=== PATIENT | female | born 1995 | race Caucasian/White ===

== ENCOUNTER 2022-07-14 13:03 | Observation (INO) | payer BC, MEDICAID | END 2022-07-14 15:00 | disposition home or self-care (01) | LOC: SPU 13:03 | PROVIDERS: ADMIT Specialist; ATTEND Specialist | DX: O34.62 Maternal care for abnormality of vagina, second trimester (principal); N89.8 Other specified noninflammatory disorders of vagina; O26.892 Other specified pregnancy related conditions, second trimester; R10.2 Pelvic and perineal pain; Z3A.28 28 weeks gestation of pregnancy | CPT/HCPCS: 82731; 36415; G0378; 59025; 81002 ==